=== PATIENT | male | born 2000 | race Caucasian/White ===

== ENCOUNTER 2022-12-28 09:43 | Observation (INO) | payer MEDICAID ==
[2022-12-28] MEDS ORDERED: Sodium Chloride 0.9% 1000 ML 1,000 ML IV STA (09:55)
[2022-12-28] MEDS ORDERED: Sodium Chloride 0.9% 1000 ML 1,000 ML ONE (10:06)
--- NOTE | 2022-12-28 10:09 | ERPHSYRPT ---
- History of Present Illness Time Seen by Provider: 12/28/22 10:07 Historian: patient Exam Limitations: no limitations Patient Subjective Stated Complaint: Abdominal pain Triage Nursing Assessment: Patient ambulated back to ED and transferred self to bed. Patient A+O X 3. Patient's skin pink, warm and dry. Patient complains of mid lower abdominal pain intermittent pain 2/10 that started yesterday morning. Patient complains of diarrhea, but denies N/V. Abdomen soft and round with BS X 4. Physician History: Patient complains of mid lower abdominal pain intermittent pain 2/10 that started yesterday morning. Patient complains of diarrhea, but denies Nausea and vomiting. Timing/Duration: yesterday Abdominal Pain Onset Location: RLQ, LLQ Pain Radiation: no radiation Severity of Pain-Max: mild Severity of Pain-Current: mild Modifying Factors: Improves With: nothing Associated Symptoms: diarrhea Previous symptoms: no prior history Body Map: 1 - pain Allergies/Adverse Reactions: No Known Drug Allergies Allergy (Unverified 12/28/22 09:54) Home Medications: No Reportable Medications [No Reported Medications] 12/28/22 [History] Hx Influenza Vaccination/Date Given: No Hx Pneumococcal Vaccination/Date Given: No Immunizations Up to Date: Yes Travel Risk - International Travel Have you traveled outside of the country in past 3 weeks: No - Coronavirus Screening Are you exhibiting any of the following symptoms?: No Close contact with a COVID-19 positive Pt in past 14-21 Days: No - Vaccine Status Have you recieved a Covid-19 vaccination: No - Review of Systems Constitutional: No Fever, No Chills Eyes: No Symptoms Ears, Nose, & Throat: No Symptoms Respiratory: No Cough, No Dyspnea Cardiac: No Chest Pain, No Edema, No Syncope Abdominal/Gastrointestinal: Abdominal Pain, Diarrhea, No Nausea, No Vomiting Genitourinary Symptoms: No Dysuria Musculoskeletal: No Back Pain, No Neck Pain Skin: No Rash Neurological: No Dizziness, No Focal Weakness, No Sensory Changes Psychological: No Symptoms Endocrine: No Symptoms All Other Systems: Reviewed and Negative - Past Medical History Pertinent Past Medical History: Yes Neurological History: No Pertinent History ENT History: No Pertinent History Cardiac History: No Pertinent History Respiratory History: No Pertinent History Endocrine Medical History: No Pertinent History Musculoskeletal History: No Pertinent History GI Medical History: No Pertinent History History: No Pertinent History Psycho-Social History: No Pertinent History Male Reproductive Disorders: No Pertinent History Other Medical History: Seasonal allergies - Past Surgical History Past Surgical History: No Neuro Surgical History: No Pertinent History Cardiac: No Pertinent History Respiratory: No Pertinent History Gastrointestinal: No Pertinent History Genitourinary: No Pertinent History Musculoskeletal: No Pertinent History Male Surgical History: No Pertinent History - Social History Smoking Status: Never smoker Exposure to second hand smoke: No Drug Use: none Patient Lives Alone: No - Nursing Vital Signs Nursing Vital Signs: Initial Vital Signs Temperature 99.5 F 12/28/22 09:54 Pulse Rate 94 H 12/28/22 09:54 Respiratory Rate 18 12/28/22 09:54 Blood Pressure 162/90 12/28/22 09:54 O2 Sat by Pulse Oximetry 99 12/28/22 09:54 Pain Scale Pain Intensity 2 - Physical Exam General Appearance: no apparent distress, alert Eye Exam: PERRL/EOMI, eyes nml inspection Ears, Nose, Throat Exam: normal ENT inspection, pharynx normal, moist mucous membranes Neck Exam: normal inspection, non-tender, supple, full range of motion Respiratory Exam: normal breath sounds, lungs clear, No respiratory distress Cardiovascular Exam: regular rate/rhythm, normal heart sounds Gastrointestinal/Abdomen Exam: soft, tenderness (RLQ, LLQ), No mass Back Exam: normal inspection, normal range of motion, No CVA tenderness, No vertebral tenderness Extremity Exam: normal inspection, normal range of motion, pelvis stable Neurologic Exam: alert, oriented x 3, cooperative, normal mood/affect, nml cerebellar function, sensation nml, No motor deficits Skin Exam: normal color, warm, dry SpO2: 99 - Course Nursing assessment & vital signs reviewed: Yes - CT Exams Abdomen/Pelvis CT Interpretation: Tele-radiologist Report (Acute appendicitis) Ordered Tests: Active Orders 24 hr Category Date Time Status ABDOMEN AND PELVIS W/0 CONTRAS [CT] Stat Exams 12/28/22 09:56 Completed AMYLASE Stat Lab 12/28/22 10:00 Received CBC W DIFF Stat Lab 12/28/22 10:00 Completed CMP Stat Lab 12/28/22 10:00 Received LIPASE Stat Lab 12/28/22 10:00 Received UA W/RFX UR CULTURE Stat Lab 12/28/22 10:00 Completed Urine Triage Profile Stat Lab 12/28/22 10:00 Completed Medication Summary Generic Name Dose Route Start Last Admin Trade Name Phylicia PRN Reason Stop Dose Admin Sodium Chloride 1,000 mls @ 999 mls/hr 12/28/22 09:55 12/28/22 10:07 Sodium Chloride 0.9% 1000 Ml IV 12/28/22 10:55 999 mls/hr .Q1H1M STA Administration Discontinued Medications Generic Name Dose Route Start Last Admin Trade Name Freq PRN Reason Stop Dose Admin Sodium Chloride Confirm 12/28/22 10:06 Sodium Chloride 0.9% 1000 Ml Administered 12/28/22 10:07 Dose 1,000 mls @ ud .ROUTE .STK-MED ONE Lab/Rad Data: Laboratory Result Diagrams 12/28/22 10:00 Laboratory Results 12/28/22 12/28/22 12/28/22 Range/Units 10:00 10:00 10:00 WBC 13.0 H (4.0-10.5) x10^3/uL RBC 5.34 (4.1-5.6) x10^6/uL Hgb 16.2 (12.5-18.0) g/dL Hct 47.9 (42-50) % MCV 89.7 (78-100) fL MCH 30.3 (26-32) pg MCHC 33.8 (32-36) g/dL RDW 12.9 (11.5-14.0) % Plt Count 318 (150-450) x10^3/uL MPV 10.1 (7.5-11.0) fL Gran % 80.2 H (36.0-66.0) % Immature Gran % (Auto) 0.3 (0.00-0.4) % Nucleat RBC Rel Count 0.0 (0.00-0.1) % Eos # (Auto) 0.07 (0-0.5) x10^3/uL Immature Gran # (Auto) 0.04 H (0.00-0.03) x10^3u/L Absolute Lymphs (auto) 1.30 (1.0-4.6) x10^3/uL Absolute Monos (auto) 1.13 (0.0-1.3) x10^3/uL Absolute Nucleated RBC 0.00 (0.00-0.01) x10^3u/L Lymphocytes % 10.0 L (24.0-44.0) % Monocytes % 8.7 (0.0-12.0) % Eosinophils % 0.5 (0.00-5.0) % Basophils % 0.3 (0.0-0.4) % Absolute Granulocytes 10.46 H (1.4-6.9) x10^3/uL Basophils # 0.04 (0-0.4) x10^3/uL Urine Color Yellow (Yellow) Urine Appearance Clear (Clear) Urine pH 7.0 (4.6-8.0) Ur Specific [place] 1.025 (1.005-1.030) Urine Protein Trace A (Negative) Urine Glucose (UA) Negative (Negative) mg/dL Urine Ketones Trace A (Negative) Urine Blood Negative (Negative) Urine Nitrite Negative (Negative) Urine Bilirubin Negative (Negative) Urine Urobilinogen 1.0 A (0.2) mg/dL Ur Leukocyte Esterase Negative (Negative) U Hyaline Cast (Auto) NONE SEEN (0-2) /LPF Urine Microscopic RBC 0-2 (0-5) /HPF Urine Microscopic WBC 0-2 (0-5) /HPF Ur Epithelial Cells None Seen (None Seen) /HPF Urine Bacteria None Seen (None Seen) /HPF Urine Culture Reflexed NO (NO) Urine Opiates Level NEGATIVE (NEGATIVE) Ur Methadone NEGATIVE (NEGATIVE) Urine Barbiturates NEGATIVE (NEGATIVE) Ur Phencyclidine (PCP) NEGATIVE (NEGATIVE) Urine Amphetamine NEGATIVE (NEGATIVE) U Benzodiazepine Level NEGATIVE (NEGATIVE) Urine Cocaine NEGATIVE (NEGATIVE) Urine Marijuana (THC) NEGATIVE (NEGATIVE) CT/ABDOMEN AND PELVIS W/0 CONTRAS CLINICAL HISTORY:right lower abdominal pain COMPARISON:None. TECHNIQUE:CT scan of the abdomen and pelvis was performed without intravenous contrast administration. Coronal and sagittal reconstructions were also obtained. FINDINGS: The appendix is dilated, thickened wall, measuring 7 cm in length and 1.5 cm in thickness. There is stranding of the surrounding fat and an appendicolith at its base measures 4 mm, findings representing acute appendicitis. Few mesenteric lymph nodes are noted. The liver is of average size, regular contour and homogeneous texture with no focal lesion could be detected on non-contrast basis. No intra hepatic biliary radical dilatation. The spleen is of average size and shape with homogeneous parenchyma and no focal lesion could be noted on non-contrast basis. Both kidneys are of normal size, shape and parenchymal thickness with no stones, back pressure changes or space occupying lesions on non-contrast basis. The other retroperitoneal structures including the pancreas and adrenal glands are grossly within normal limits. No significant lymph camron enlargement or ascetic fluid collection. The prostate is of average size and shape. Inadequate filling of the urinary bladder with no stones, masses, or diverticula. Bone window settings showed no evidence of fractures or destructive lesions. Lung window settings showed normal appearance of both basal lung segments. IMPRESSION: Findings are consistent with acute appendicitis. No definite imaging evidence of its rupture or collection in the current examination. The [facility] ER was called at [phone] at 09:41 AM ORAL AND MAXILLOFACIAL SURGEON, 12/28/2022 and Critical medical findings were verbally communicated to referring doctor Cesar Guzman. - Progress Progress: unchanged Counseled pt/family regarding: lab results, diagnosis, need for follow-up, rad results - Departure Departure Disposition: Observation Clinical Impression: Appendicitis Qualifiers: Appendicitis type: acute appendicitis Acute appendicitis type: with localized peritonitis Appendicitis gangrene presence: without gangrene Appendicitis perforation presence: without perforation Appendicitis abscess presence: without abscess Qualified Code(s): K35.30 - Acute appendicitis with localized peritonitis, without perforation or gangrene Condition: Fair Critical Care Time: Yes Critical Care Time(excluding separately billable procedures): Critical 30-74 mins Referrals: YAO YOUNG [Primary Care Provider] - Follow up/PCP as directed Instructions: Appendicitis in adults
[2022-12-28 10:22] LABS: Absolute Neutrophil Ct (ANC) 10.46 x10^3/uL (1.4-6.9); BASOPHIL % 0.3 % (0.0-0.4); Basophil (Absolute #) 0.04 x10^3/uL (0-0.4); Eosinophil % 0.5 % (0.00-5.0); Eosinophil (Absolute #) 0.07 x10^3/uL (0-0.5); Hematocrit 47.9 % (42-50); Hemoglobin 16.2 g/dL (12.5-18.0); IMMATURE GRAN # 0.04 x10^3u/L (0.00-0.03); IMMATURE GRAN % 0.3 % (0.00-0.4); Mean Cell Volume 89.7 fL (78-100); Mean Corpuscular Hemoglobin 30.3 pg (26-32); Mean Corpuscular Hgb Concent. 33.8 g/dL (32-36); Mean Platelet Volume 10.1 fL (7.5-11.0); Monocyte (Absolute #) 1.13 x10^3/uL (0.0-1.3); Monocytes % 8.7 % (0.0-12.0); Neutrophil % 80.2 % (36.0-66.0); Platelet Count 318 x10^3/uL (150-450); Red Blood Count 5.34 x10^6/uL (4.1-5.6); Red Cell Distribution Width 12.9 % (11.5-14.0)
[2022-12-28 10:25] LABS: Appearance Clear (Clear); Bacteria None Seen /HPF (None Seen); Bilirubin Negative (Negative); Blood Negative (Negative); Epithelial Cells None Seen /HPF (None Seen); Glucose, Urine Negative (Negative); Hyaline Casts NONE SEEN /LPF (0-2); Ketones Trace (Negative); Leukocyte Esterase Negative (Negative); Nitrite Negative (Negative); Protein,Urine Dip Trace (Negative); RBC 0-2 /HPF (0-5); Specific Gravity 1.025 (1.005-1.030); WBC 0-2 /HPF (0-5)
[2022-12-28 10:32] LABS: Amphetamine,Urine NEGATIVE (NEGATIVE); Barbiturate,Urine NEGATIVE (NEGATIVE); Benzodiazepine,Urine NEGATIVE (NEGATIVE); Cocaine,Urine NEGATIVE (NEGATIVE); Methadone,Urine NEGATIVE (NEGATIVE); Opiate,Urine NEGATIVE (NEGATIVE); PCP,Urine NEGATIVE (NEGATIVE); THC,Urine NEGATIVE (NEGATIVE)
[2022-12-28 10:38] LABS: ADD URINE CULTURE? NO (NO)
[2022-12-28 10:46] LABS: ALBUMIN 4.9 g/dL (3.5-5.0); ALKALINE PHOSPHATASE 91 U/L (38-126); AMYLASE 73 U/L (30-110); ANION GAP 18.2 MEQ/L (5-15); BLOOD UREA NITROGEN 14 mg/dL (9-20); CHLORIDE 105 mmol/L (98-107); Calcium 9.4 mg/dL (8.4-10.2); Carbon Dioxide 23 mmol/L (22-30); Creatinine 1 0.84 mg/dL (0.66-1.25); EST GLOMERULAR FILTRATION RATE > 60.0 ML/MIN; Glucose 103 mg/dL (74-106); LIPASE 54 U/L (23-300); Potassium 3.8 mmol/L (3.5-5.1); SGOT/AST 28 U/L (17-59); SGPT/ALT 25 U/L (0-50); SODIUM 142 mmol/L (137-145); Total Protein 8.3 g/dL (6.3-8.2)
--- NOTE | 2022-12-28 10:47 | XRAY ---
CLINICAL HISTORY:right lower abdominal pain COMPARISON:None. TECHNIQUE:CT scan of the abdomen and pelvis was performed without intravenous contrast administration. Coronal and sagittal reconstructions were also obtained. FINDINGS: The appendix is dilated, thickened wall, measuring 7 cm in length and 1.5 cm in thickness. There is stranding of the surrounding fat and an appendicolith at its base measures 4 mm, findings representing acute appendicitis. Few mesenteric lymph nodes are noted. The liver is of average size, regular contour and homogeneous texture with no focal lesion could be detected on non-contrast basis. No intra hepatic biliary radical dilatation. The spleen is of average size and shape with homogeneous parenchyma and no focal lesion could be noted on non-contrast basis. Both kidneys are of normal size, shape and parenchymal thickness with no stones, back pressure changes or space occupying lesions on non-contrast basis. The other retroperitoneal structures including the pancreas and adrenal glands are grossly within normal limits. No significant lymph camron enlargement or ascetic fluid collection. The prostate is of average size and shape. Inadequate filling of the urinary bladder with no stones, masses, or diverticula. Bone window settings showed no evidence of fractures or destructive lesions. Lung window settings showed normal appearance of both basal lung segments. IMPRESSION: Findings are consistent with acute appendicitis. No definite imaging evidence of its rupture or collection in the current examination. The [facility] ER was called at [phone] at 09:41 AM SET UP AND CHARGER, 12/28/2022 and Critical medical findings were verbally communicated to referring doctor Cesar Guzman. Electronically Signed by: Jesse Eden MD. (12/28/2022 09:46:22 SET UP AND CHARGER)
[2022-12-28] MEDS ORDERED: CEFAZOLIN 2 GM-D5W BAG** 2 GM/50 ML ML IV STA (10:51)
[2022-12-28] MEDS ORDERED: Sensorcaine 0.25% 10 ML ONE (11:45)
[2022-12-28] MEDS ORDERED: Lactated Ringers 1,000 ML IV ONE (11:45)
[2022-12-28] MEDS ORDERED: SUBLIMAZE 100 MCG/2 ML ONE (12:24)
[2022-12-28] MEDS ORDERED: Zofran 4 MG/2 ML VIAL ONE (12:24)
[2022-12-28] MEDS ORDERED: Versed 2 MG/2 ML Injection ONE (12:24)
[2022-12-28] MEDS ORDERED: Zemuron 100 MG/10 ML ONE (12:24)
[2022-12-28] MEDS ORDERED: TORAdol 30 mg Injection ONE (12:24)
[2022-12-28] MEDS ORDERED: DIPRIVAN 200 MG/20 ML IV ONE (12:24)
[2022-12-28] MEDS ORDERED: BRIDION 200MG/2ML IV ONE (12:24)
[2022-12-28] MEDS ORDERED: Decadron 4 MG INJ ONE (12:24)
[2022-12-28] MEDS ORDERED: Xylocaine-Mpf 2% 5 Ml Vial ONE (12:24)
[2022-12-28] MEDS ORDERED: MEFOXIN 2 GM PREMIX** 2 GM/50 ML ML IV ONE (12:48)
[2022-12-28] MEDS ORDERED: Lactated Ringers 1,000 ML IV SCH (14:30)
[2022-12-28] MEDS ORDERED: Zofran 4 MG/2 ML VIAL IV PRN (14:32)
[2022-12-28] MEDS ORDERED: MORPHINE SULFATE 4 MG INJ IV PRN (14:32)
[2022-12-28] MEDS: NORCO 5/325 MG PO PRN ×2 (15:09→23:46)
[2022-12-28] MEDS: PIPERACILLIN/TAZOBACTAM 3.375 GM in Sodium Chloride 100ML MINI-BAG PLUS 100 ML IV SCH ×2 (17:49→23:46)
[2022-12-29 05:19] LABS: BASOPHIL % 0.3 % (0.0-0.4); Basophil (Absolute #) 0.03 x10^3/uL (0-0.4); Eosinophil % 0.1 % (0.00-5.0); Eosinophil (Absolute #) 0.01 x10^3/uL (0-0.5); Hematocrit 42.6 % (42-50); Hemoglobin 14.2 g/dL (12.5-18.0); IMMATURE GRAN # 0.03 x10^3u/L (0.00-0.03); IMMATURE GRAN % 0.3 % (0.00-0.4); Lymphocyte (Absolute #) 1.75 x10^3/uL (1.0-4.6); Lymphocytes % 15.5 % (24.0-44.0); Mean Cell Volume 90.6 fL (78-100); Mean Corpuscular Hemoglobin 30.2 pg (26-32); Mean Corpuscular Hgb Concent. 33.3 g/dL (32-36); Mean Platelet Volume 9.7 fL (7.5-11.0); Monocytes % 9.7 % (0.0-12.0); Neutrophil % 74.1 % (36.0-66.0); Platelet Count 279 x10^3/uL (150-450); Red Cell Distribution Width 13.2 % (11.5-14.0); White Blood Count 11.3 x10^3/uL (4.0-10.5)
[2022-12-29] MEDS: PIPERACILLIN/TAZOBACTAM 3.375 GM in Sodium Chloride 100ML MINI-BAG PLUS 100 ML IV SCH (05:53)
[2022-12-29] MEDS: NORCO 5/325 MG PO PRN ×2 (05:53→10:35)
[2022-12-29 08:46] VITALS: BP 122/60; PULSE 60; RESP 18; TEMP 97.3; O2SAT 95
--- NOTE | 2022-12-30 09:58 | CONS ---
CONSULT DATE: 12/28/2022 HISTORY OF PRESENT ILLNESS: 22 year-old gentleman who has had abdominal pain in lower abdomen since yesterday. Failed to improve. Denied any bloody stools or diarrhea. Came in. Had some leukocytosis. Had CT scan that showed a dilated appendix, stranding appendicolith, subacute appendicitis. PAST MEDICAL HISTORY: He has some allergies. Otherwise, denied any chronic illnesses. HOME MEDICATIONS: Take montelukast and loratadine on occasion. ALLERGIES: NKDA. FAMILY HISTORY: Colon cancer. Also, some hypertension in the family. I think he mentioned heart disease. SOCIAL HISTORY: No alcohol abuse. PAST SURGICAL HISTORY: Denied any prior abdominal surgeries. REVIEW OF SYSTEMS: 14 systems reviewed per admission assessment pertinent for the abdominal pain and history of allergies. No chest pain or palpitations. Other systems negative or noncontributory other than above and per admission assessment. PHYSICAL EXAMINATION: GENERAL: No acute distress. HEENT: Sclerae nonicteric. NECK: No JVD. CHEST: Equal excursion. Nonlabored breathing. CVS: Regular rate and rhythm. ABDOMEN: Soft. No peritoneal signs, but he does have some lower abdominal tenderness currently. EXTREMITIES: No cyanosis or edema. NEURO: Alert, moving extremities symmetrically. PSYCH: Appropriate mood and affect. IMPRESSION: 1. ACUTE LOWER ABDOMINAL PAIN. Has had some leukocytosis. He has had abnormal CT scan and history and physical exam suggestive of acute appendicitis. Feel the patient would benefit from diagnostic laparoscopy, laparoscopic appendectomy, possible open when OR time available. General risks of bleeding; infection; risk or trocar injury or hernia; risk of bowel, bladder, or blood vessel injury; risk of subsequent intraabdominal abscess or fistula formation possibly requiring percutaneous or open drainage even at a later date; general risks of anesthesia, deep vein thrombosis, pulmonary embolus, or pneumonia; perioperative risks of aches, pains, or bloating; risk of finding normal appendix likely would remove it incidentally and look for other etiology that might need taken care of surgically; general risks of anesthesia or sedation; perioperative risks of ileus or obstruction and ongoing infection. He understands and agrees to planned procedure. Will proceed with diagnostic laparoscopy, laparoscopic appendectomy, possible open when OR time available. Otherwise, will continue his PRN medication for his allergies. Thank you for the consult.
--- NOTE | 2022-12-30 10:25 | OP ---
SURGERY DATE: 12/28/2022 SURGERY TIME: 9 PREOPERATIVE DIAGNOSIS: 1. ACUTE ABDOMINAL PAIN. 2. ACUTE APPENDICITIS. POSTOPERATIVE DIAGNOSIS: 1. ACUTE NONPERFORATED APPENDICITIS. PROCEDURE: 1. LAPAROSCOPIC APPENDECTOMY. SURGEON: Dr. Bebo Pryor. ANESTHESIA: General. ESTIMATED BLOOD LOSS: Minimal. INDICATIONS: As noted above. Risks and benefits explained in detail, but not limited to. Consent obtained. DESCRIPTION OF PROCEDURE AND FINDINGS: The patient was taken to the OR. General anesthesia was induced. The abdomen prepped and draped in the usual sterile fashion. After official time-out, no disagreement in planned procedure. Transverse incision made in the supraumbilical area. Fascia grasped and pulled up. Veress needle inserted. Tested with saline. Pneumoperitoneum accomplished insufflating to an open pressure of 0-15. 5 mm bladeless port and camera inserted without difficulty followed by a 12 mm right upper quadrant port and 5 mm lower mid abdomen port. There was no evidence of any intraabdominal injury secondary to trocar insertion. Appendix was quite dilated consistent with acute appendicitis. Adhesions were release allowing the appendix to be mobilized upward. The Endo[employer] stapler was fired across the base of the appendix at the cecum. Sequential reloads were fired across the mesoappendix. Appendix was placed in a bag, pulled free, and passed off. The port was replaced. A copious amount of irrigation accomplished in the right lower quadrant, pelvis, and right gutter irrigating until clear. The fascial defect 12 size was closed under direct vision with #1 Vicryl. The pneumoperitoneum decompressed. Wounds irrigated out. Skin incisions closed with 4-0 Vicryl. 0.25% Marcaine local had been injected along each skin incision and fascial defect at the beginning of the procedure. There were no immediate complications. There was no family to discuss any findings with here at this time. Have him on IV antibiotics today and possibly home tomorrow. His WBC count is okay. He was given a script for Augmentin and Hydrocodone.
== END 2022-12-29 10:55 | disposition home or self-care (01) ==
LOC: ED 09:43 → MED SURG 13:50 → UNDOADMOB 13:50 → UNDODISOB 12-29 10:55
PROVIDERS: ADMIT Surgery; ATTEND Surgery
DX: K35.80 Unspecified acute appendicitis (principal); D72.829 Elevated white blood cell count, unspecified; Z20.828 Contact with and (suspected) exposure to other viral communicable diseases; Z80.0 Family history of malignant neoplasm of digestive organs
CPT/HCPCS: 36000; 36415; 74176; 80053; 80307; 81001; 82150; 83690; 85025; 96365; 99140; 99284; 99291; J0690; J0694; J1100; J1885; J2250; J2405; J2704; J3010; A9270-GY

== ENCOUNTER 2024-05-30 08:10 | Emergency (ER) | payer BC, MEDICAID ==
[2024-05-30 08:26] VITALS: TEMP 96.9
[2024-05-30 09:03] VITALS: O2SAT 98
[2024-05-30 09:20] LABS: Absolute Neutrophil Ct (ANC) 5.64 x10^3/uL (1.78-5.38); BASOPHIL % 0.5 % (0.2-1.2); Basophil (Absolute #) 0.04 x10^3/uL (0.01-0.08); Eosinophil % 0.9 % (0.8-7.0); Eosinophil (Absolute #) 0.07 x10^3/uL (0.04-0.54); Hematocrit 47.4 % (40.1-51.0); Hemoglobin 15.9 g/dL (13.7-17.5); IMMATURE GRAN # 0.02 x10^3u/L (0.001-0.031); IMMATURE GRAN % 0.3 % (0.001-0.429); Lymphocyte (Absolute #) 1.11 x10^3/uL (1.32-3.57); Mean Cell Volume 88.6 fL (79.0-92.2); Mean Corpuscular Hemoglobin 29.7 pg (25.7-32.2); Mean Corpuscular Hgb Concent. 33.5 g/dL (32.3-36.5); Mean Platelet Volume 9.9 fL (9.4-12.4); Monocyte (Absolute #) 0.51 x10^3/uL (0.30-0.82); Monocytes % 6.9 % (5.3-12.2); Neutrophil % 76.4 % (34.0-67.9); Platelet Count 245 x10^3/uL (163-337); Red Blood Count 5.35 x10^6/uL (4.63-6.08); Red Cell Distribution Width 12.3 % (11.6-14.4); White Blood Count 7.4 x10^3/uL (4.23-9.07)
--- NOTE | 2024-05-30 09:24 | XRAY ---
CLINICAL HISTORY: Right flank pain COMPARISON: 12/28/2022 CT. TECHNIQUE: CT of the abdomen and pelvis was performed, with the following protocol: axial images, and reconstructed coronal and sagittal images. No intravenous contrast was administered. One of the following dose reduction techniques was utilized for this exam: Automated exposure control, adjustment of the mA and/or kV according to patient size, and use of iterative reconstruction. CTDI: 997mGy, DLP: 538mGy*cm. FINDINGS: Abdomen: Bilateral basal faint small patchy ground glass opacities Liver: Normal in size, shape, and density. No focal lesions, cysts, or masses were identified. Gallbladder and Biliary System: The gallbladder is normal in size and shape. No wall thickening, pericholecystic fluid, or gallstones were identified. Pancreas: Pancreatic head, body, and tail are visualized and appear normal in size and density. No pancreatic masses or calcifications were noted. Spleen: Normal in size, shape, and density. No splenic lesions or masses were identified. Kidneys and Adrenal Glands: Both kidneys are normal in size, shape, and position. Cortical thickness is within normal limits. No renal calculi or hydronephrosis. Adrenal glands are unremarkable. Appendix: Minimal right iliac fossa fat stranding, with metallic surgical clips, likely previous appendicectomy. Pelvis: Urinary Bladder: Normal in contour and wall thickness. No intraluminal lesions. Prostate: Normal in size and contour. No masses or abnormal thickening. Peritoneal and Retroperitoneal Structures: No free fluid or abnormal fluid collections were identified within the abdomen or pelvis. No lymphadenopathy was noted. Bowel: The visualized bowel loops are normal in caliber and appearance. No evidence of bowel obstruction or wall thickening. Bones and Soft Tissues: Pelvic bones and soft tissues are unremarkable. No fractures or abnormal masses were identified. IMPRESSION: 1. Overall, non-contrast CT abdomen and pelvis demonstrate normal findings without evidence of acute intra-abdominal pathology. .Bilateral basal faint small patchy ground glass opacities. 2. Clinical correlation is recommended. Electronically Signed by: Jesse Eden MD. (05/30/2024 09:20:20 EDT)
[2024-05-30 09:29] LABS: Appearance Clear (Clear); Bacteria None Seen /HPF (None Seen); Bilirubin Negative (Negative); Blood Moderate (Negative); Epithelial Cells None Seen /HPF (None Seen); Glucose, Urine Negative (Negative); Hyaline Casts NONE SEEN /LPF (0-2); Ketones Negative (Negative); Leukocyte Esterase Negative (Negative); Nitrite Negative (Negative); Ph 6.5 (4.6-8.0); Protein,Urine Dip Trace (Negative); RBC 51-100 /HPF (0-5); Specific Gravity 1.025 (1.005-1.030)
[2024-05-30 09:33] LABS: ANION GAP 18.6 MEQ/L (5-15); Calcium 9.4 mg/dL (8.4-10.2); Creatinine 1 0.97 mg/dL (0.66-1.25); EST GLOMERULAR FILTRATION RATE 113.2 ML/MIN
--- NOTE | 2024-05-30 10:05 | ERPHSYRPT ---
- History of Present Illness Source: patient Exam Limitations: no limitations Patient Subjective Stated Complaint: Patient reports waking up this am with sudden onset of right lower back pain with nausea, no vomiting. Reports being diaphoretic and the pain rolling around to the right side of his abdomen. Nausea and diaphoresis has subsided and the pain has decreased but has not gone away. Triage Nursing Assessment: Patient ambulated back to ER without difficulties. He is alert and oriented. MELO WNL. NO SOB. Skin tone normal. Physician History: Patient had classic symptoms of a kidney stone. He had right flank pain that radiated to his inguinal area. It was intermittent and crampy and colicky. He had some nausea little bit of sweating but that went away. He has been pretty much pain-free since the pain only lasted for a few episodes. It seems to have resolved. He does not have any abdominal pain right now. He has had no dysuria and no fever chills or any other urinary symptoms. He has not had any abdominal surgeries and is a healthy bobby without medical problems. Allergies/Adverse Reactions: No Known Drug Allergies Allergy (Verified 05/30/24 08:20) Home Medications: No Reportable Medications [No Reported Medications] 05/30/24 [History] Hx Influenza Vaccination/Date Given: No Hx Pneumococcal Vaccination/Date Given: No Immunizations Up to Date: Yes Travel Risk - International Travel Have you traveled outside of the country in past 3 weeks: No - Emerging Infectious Disease Are you exhibiting symptoms associated with any current EIDs: Yes Symptoms: Abdominal Pain - Past Medical History Pertinent Past Medical History: Yes Neurological History: No Pertinent History ENT History: No Pertinent History Cardiac History: No Pertinent History Respiratory History: No Pertinent History Endocrine Medical History: No Pertinent History Musculoskeletal History: No Pertinent History GI Medical History: No Pertinent History History: No Pertinent History Psycho-Social History: No Pertinent History Male Reproductive Disorders: No Pertinent History Other Medical History: Seasonal allergies - Past Surgical History Past Surgical History: Yes Neuro Surgical History: No Pertinent History Cardiac: No Pertinent History Respiratory: No Pertinent History Gastrointestinal: Appendectomy Genitourinary: No Pertinent History Musculoskeletal: No Pertinent History Male Surgical History: No Pertinent History - Social History Smoking Status: Never smoker Exposure to second hand smoke: No Drug Use: none - Social Determinants of Health Will the patient participate in the screening: Yes Do you worry about a steady place to live?: No Do you have any problems with any of the following?: No known problems In the past 12 months,have you had to go without utilities?: No Transportation Issues: No Has anyone in your support network made you feel unsafe?: No Have you or anyone in your house had to go w/o enough food: No - Review of Systems Constitutional: No Symptoms Eyes: No Symptoms Abdominal/Gastrointestinal: No Symptoms Musculoskeletal: No Symptoms All Other Systems: Reviewed and Negative - Nursing Vital Signs Nursing Vital Signs: Initial Vital Signs Temperature 96.9 F 05/30/24 08:15 Pulse Rate 86 05/30/24 08:15 Respiratory Rate 17 05/30/24 08:15 Blood Pressure 140/77 05/30/24 08:15 O2 Sat by Pulse Oximetry 100 05/30/24 08:15 Pain Scale Pain Intensity 5 - Physical Exam General Appearance: no apparent distress Respiratory Exam: normal breath sounds, lungs clear, No chest tenderness Cardiovascular Exam: regular rate/rhythm Gastrointestinal/Abdomen Exam: soft, normal bowel sounds, No tenderness, No distention Back Exam: normal inspection, normal range of motion Skin Exam: normal color SpO2: 98 Ordered Tests: Active Orders 24 hr Category Date Time Status ABDOMEN AND PELVIS W/0 CONTRAS [CT] Stat Exams 05/30/24 08:15 Completed BMP Stat Lab 05/30/24 09:18 Completed CBC W DIFF Stat Lab 05/30/24 09:18 Completed CULTURE,URINE Stat Lab 05/30/24 09:18 Received UA W/RFX UR CULTURE Stat Lab 05/30/24 09:18 Completed Lab/Rad Data: Laboratory Result Diagrams 05/30/24 09:18 05/30/24 09:18 Laboratory Results 05/30/24 05/30/24 05/30/24 Range/Units 09:18 09:18 09:18 WBC 7.4 (4.23-9.07) x10^3/uL RBC 5.35 (4.63-6.08) x10^6/uL Hgb 15.9 (13.7-17.5) g/dL Hct 47.4 (40.1-51.0) % MCV 88.6 (79.0-92.2) fL MCH 29.7 (25.7-32.2) pg MCHC 33.5 (32.3-36.5) g/dL RDW 12.3 (11.6-14.4) % Plt Count 245 (163-337) x10^3/uL MPV 9.9 (9.4-12.4) fL Gran % 76.4 H (34.0-67.9) % Immature Gran % (Auto) 0.3 (0.001-0.429) % Nucleat RBC Rel Count 0.0 (0.00-0.2) % Eos # (Auto) 0.07 (0.04-0.54) x10^3/uL Immature Gran # (Auto) 0.02 (0.001-0.031) x10^3u/L Absolute Lymphs (auto) 1.11 L (1.32-3.57) x10^3/uL Absolute Monos (auto) 0.51 (0.30-0.82) x10^3/uL Absolute Nucleated RBC 0.00 (0.00-0.012) x10^3u/L Lymphocytes % 15.0 L (21.8-53.1) % Monocytes % 6.9 (5.3-12.2) % Eosinophils % 0.9 (0.8-7.0) % Basophils % 0.5 (0.2-1.2) % Absolute Granulocytes 5.64 H (1.78-5.38) x10^3/uL Basophils # 0.04 (0.01-0.08) x10^3/uL Sodium 145 (135-145) mmol/L Potassium 4.0 (3.5-5.1) mmol/L Chloride 106 (98-107) mmol/L Carbon Dioxide 24 (22-30) mmol/L Anion Gap 18.6 H (5-15) MEQ/L BUN 17 (9-20) mg/dL Creatinine 0.97 (0.66-1.25) mg/dL Estimated GFR 113.2 ML/MIN Glucose 101 (74-106) mg/dL Calcium 9.4 (8.4-10.2) mg/dL Urine Color Yellow (Yellow) Urine Appearance Clear (Clear) Urine pH 6.5 (4.6-8.0) Ur Specific [place] 1.025 (1.005-1.030) Urine Protein Trace A (Negative) Urine Glucose (UA) Negative (Negative) mg/dL Urine Ketones Negative (Negative) Urine Blood Moderate A (Negative) Urine Nitrite Negative (Negative) Urine Bilirubin Negative (Negative) Urine Urobilinogen 1.0 A (0.2) mg/dL Ur Leukocyte Esterase Negative (Negative) U Hyaline Cast (Auto) NONE SEEN (0-2) /LPF Urine Microscopic RBC 51-100 A (0-5) /HPF Urine Microscopic WBC 6-10 A (0-5) /HPF Ur Epithelial Cells None Seen (None Seen) /HPF Urine Bacteria None Seen (None Seen) /HPF Urine Culture Reflexed YES (NO) - Progress Progress: unchanged Progress Note: Patient was stable throughout stay. He had classic UTI symptoms. I went and got a CT that did not show any stone. I think that he either had a really small stone or had 1 in the past. His urine had red cells but no white cells I do not think that there is an infectious process going on. 05/30/24 10:06 - Departure Departure Disposition: Home Clinical Impression: Kidney stone Condition: Stable Critical Care Time: No Referrals: YAO YOUNG [Primary Care Provider] - Follow up/PCP as directed Instructions: Kidney Stones (DC)
[2024-05-30 10:14] VITALS: BP 117/80; PULSE 80; RESP 16
== END 2024-05-30 10:15 | disposition home or self-care (01) ==
LOC: ED 08:10
DX: N20.0 Calculus of kidney (principal); R10.9 Unspecified abdominal pain; R11.0 Nausea
CPT/HCPCS: 36415; 74176; 80048; 81001; 85025; 87086; 99284

== ENCOUNTER 2024-06-06 00:54 | Emergency (ER) | payer BC ==
[2024-06-06 01:06] VITALS: TEMP 98.1
--- NOTE | 2024-06-06 01:10 | ERPHSYRPT ---
- History of Present Illness Time Seen by Provider: 06/06/24 00:58 Source: patient, family Exam Limitations: no limitations Physician History: Pt had onset of right flank pain radiating around to his groin again today. He was seen here last weekend and thought to have renal stone due to hematuria - CT reported by him as clear at that time and thought to have passed a stone. He was fine all week long until just a couple of hours ago this came back. Discussed with pt and available family risks and benefits of testing/Tx including CBC, CMP, UA, pain med ( toradol) , and they wish to proceed so these are ordered. We discussed CT , but he has recently had this and abd exam is benign nontender nondistended without peritoneal signs or masses - and so he reasonably declines at this time. . Results discussed with pt and available family. initial pain level 5/10 interval pain level - Timing/Duration: today Method of Injury: other (no known injury) Quality: burning, sharp, throbbing Back Pain Location: lumbar spine Severity of Pain-Max: moderate Severity of Pain-Current: moderate Modifying Factors: Improves With: nothing Associated Symptoms: denies symptoms Previous symptoms: same symptoms as today, recently seen, recently treated Allergies/Adverse Reactions: No Known Drug Allergies Allergy (Verified 06/06/24 01:15) Hx Influenza Vaccination/Date Given: No Hx Pneumococcal Vaccination/Date Given: No Travel Risk - Emerging Infectious Disease Are you exhibiting symptoms associated with any current EIDs: Yes Symptoms: Abdominal Pain - Review of Systems Constitutional: No Fever, No Chills Eyes: No Symptoms Ears, Nose, & Throat: No Symptoms Respiratory: No Cough, No Dyspnea Cardiac: No Chest Pain, No Edema, No Syncope Abdominal/Gastrointestinal: No Abdominal Pain, No Nausea, No Vomiting, No Diarrhea Genitourinary Symptoms: Flank Pain, No Dysuria Musculoskeletal: Back Pain, No Neck Pain Skin: No Rash Neurological: No Dizziness, No Focal Weakness, No Sensory Changes Psychological: No Symptoms Endocrine: No Symptoms Hematologic/Lymphatic: No Symptoms Immunological/Allergic: No Symptoms All Other Systems: Reviewed and Negative - Past Medical History Pertinent Past Medical History: Yes Neurological History: No Pertinent History ENT History: No Pertinent History Cardiac History: No Pertinent History Respiratory History: No Pertinent History Endocrine Medical History: No Pertinent History Musculoskeletal History: No Pertinent History GI Medical History: No Pertinent History History: No Pertinent History Psycho-Social History: No Pertinent History Male Reproductive Disorders: No Pertinent History Other Medical History: Seasonal allergies - Past Surgical History Past Surgical History: Yes Neuro Surgical History: No Pertinent History Cardiac: No Pertinent History Respiratory: No Pertinent History Gastrointestinal: Appendectomy Genitourinary: No Pertinent History Musculoskeletal: No Pertinent History Male Surgical History: No Pertinent History - Social History Smoking Status: Never smoker Exposure to second hand smoke: No Drug Use: none - Social Determinants of Health Will the patient participate in the screening: Yes Do you worry about a steady place to live?: No In the past 12 months,have you had to go without utilities?: No Transportation Issues: No Has anyone in your support network made you feel unsafe?: No Have you or anyone in your house had to go w/o enough food: No - Nursing Vital Signs Nursing Vital Signs: Initial Vital Signs Pulse Rate 62 06/06/24 01:03 Respiratory Rate 14 06/06/24 01:03 Blood Pressure 135/86 06/06/24 01:03 O2 Sat by Pulse Oximetry 99 06/06/24 01:03 Pain Scale Pain Intensity [Right Lower 5 Back] Pain Intensity 4 - Physical Exam General Appearance: no apparent distress, alert Eye Exam: PERRL/EOMI, eyes nml inspection Neck Exam: normal inspection, non-tender, supple, full range of motion, No menin gismus, No midline tenderness Respiratory Exam: normal breath sounds, lungs clear, No respiratory distress Cardiovascular Exam: regular rate/rhythm, normal heart sounds Gastrointestinal Exam: soft, No tenderness, No mass Rectal Exam: deferred Extremity Exam: normal inspection, normal range of motion, No calf tenderness, No pedal edema Peripheral Pulses: carotid (R): 2+, carotid (L): 2+, femoral (R): 2+, femoral (L): 2+, dorsalis-pedis (R): 2+, dorsalis-pedis (L): 2+ Neurologic Exam: alert, oriented x 3, cooperative, lead technical architect II-XII nml as tested, normal mood/affect, nml station & gait, sensation nml, No motor deficits Skin Exam: normal color, warm, dry, No rash SpO2 Interpretation: normal SpO2: 100 O2 Delivery: Room Air - Course Nursing assessment & vital signs reviewed: Yes Ordered Tests: Active Orders 24 hr Category Date Time Status IV Insertion STAT Care 06/06/24 01:10 Active CBC W DIFF Stat Lab 06/06/24 01:10 Completed CMP Stat Lab 06/06/24 01:10 Completed UA W/RFX UR CULTURE Stat Lab 06/06/24 01:20 Completed Medication Summary Discontinued Medications Generic Name Dose Route Start Last Admin Trade Name Phylicia PRN Reason Stop Dose Admin Sodium Chloride 1,000 mls @ 999 mls/hr 06/06/24 01:10 06/06/24 01:27 Sodium Chloride 0.9% 1000 Ml IV 06/06/24 02:10 999 mls/hr .Q1H1M STA Administration Sodium Chloride Confirm 06/06/24 01:22 Sodium Chloride 0.9% 1000 Ml Administered 06/06/24 01:23 Dose 1,000 mls @ ud .ROUTE .STK-MED ONE Ketorolac Tromethamine 30 mg 06/06/24 01:10 06/06/24 01:26 Ketorolac Tromethamine 30 Mg/Ml Inj IV 06/06/24 01:11 30 mg STAT ONE Administration Ketorolac Tromethamine Confirm 06/06/24 01:22 Ketorolac Tromethamine 30 Mg/Ml Inj Administered 06/06/24 01:23 Dose 30 mg .ROUTE .STK-MED ONE Lab/Rad Data: Laboratory Result Diagrams 06/06/24 01:10 06/06/24 01:10 Laboratory Results 06/06/24 06/06/24 06/06/24 Range/Units 01:20 01:10 01:10 WBC 6.1 (4.23-9.07) x10^3/uL RBC 5.05 (4.63-6.08) x10^6/uL Hgb 15.1 (13.7-17.5) g/dL Hct 44.1 (40.1-51.0) % MCV 87.3 (79.0-92.2) fL MCH 29.9 (25.7-32.2) pg MCHC 34.2 (32.3-36.5) g/dL RDW 12.2 (11.6-14.4) % Plt Count 256 (163-337) x10^3/uL MPV 9.9 (9.4-12.4) fL Gran % 48.6 (34.0-67.9) % Immature Gran % (Auto) 0.3 (0.001-0.429) % Nucleat RBC Rel Count 0.0 (0.00-0.2) % Eos # (Auto) 0.14 (0.04-0.54) x10^3/uL Immature Gran # (Auto) 0.02 (0.001-0.031) x10^3u/L Absolute Lymphs (auto) 2.24 (1.32-3.57) x10^3/uL Absolute Monos (auto) 0.70 (0.30-0.82) x10^3/uL Absolute Nucleated RBC 0.00 (0.00-0.012) x10^3u/L Lymphocytes % 36.8 (21.8-53.1) % Monocytes % 11.5 (5.3-12.2) % Eosinophils % 2.3 (0.8-7.0) % Basophils % 0.5 (0.2-1.2) % Absolute Granulocytes 2.96 (1.78-5.38) x10^3/uL Basophils # 0.03 (0.01-0.08) x10^3/uL Sodium 141 (135-145) mmol/L Potassium 3.9 (3.5-5.1) mmol/L Chloride 102 (98-107) mmol/L Carbon Dioxide 25 (22-30) mmol/L Anion Gap 17.1 H (5-15) MEQ/L BUN 19 (9-20) mg/dL Creatinine 0.95 (0.66-1.25) mg/dL Estimated GFR 116.1 ML/MIN Glucose 100 (74-106) mg/dL Calcium 9.3 (8.4-10.2) mg/dL Total Bilirubin 0.50 (0.2-1.3) mg/dL AST 35 (17-59) U/L ALT 26 (0-50) U/L Alkaline Phosphatase 62 (38-126) U/L Serum Total Protein 7.7 (6.3-8.2) g/dL Albumin 4.7 (3.5-5.0) g/dL Urine Color Yellow (Yellow) Urine Appearance Clear (Clear) Urine pH 5.5 (4.6-8.0) Ur Specific [place] 1.025 (1.005-1.030) Urine Protein Negative (Negative) Urine Glucose (UA) Negative (Negative) mg/dL Urine Ketones Negative (Negative) Urine Blood Moderate A (Negative) Urine Nitrite Negative (Negative) Urine Bilirubin Negative (Negative) Urine Urobilinogen 0.2 (0.2) mg/dL Ur Leukocyte Esterase Negative (Negative) U Hyaline Cast (Auto) NONE SEEN (0-2) /LPF Urine Microscopic RBC 21-50 A (0-5) /HPF Urine Microscopic WBC 0-2 (0-5) /HPF Ur Epithelial Cells None Seen (None Seen) /HPF Urine Bacteria None Seen (None Seen) /HPF Urine Culture Reflexed NO (NO) - Progress Progress: improved, re-examined Counseled pt/family regarding: lab results, diagnosis, need for follow-up Medical Desision Making - Independent Historian Additional History obtained from: Family - Discussion of managment Reviewed:: Test results, Need for additional workup Agreed on:: Treatment plan, need for follow-up - Diagnostic Testing Diagnostic test were ordered, analyzed, and reviewed by me: Yes - Risk of complications The pt has a mod risk of morbidity or mortality based on: Need for prescription drug management - Departure Departure Disposition: Home Clinical Impression: Hematuria, symptoms consistent with kidney stone, back/flank/groin pain of unconfirmed kale Condition: Good Critical Care Time: No Referrals: YAO YOUNG [Primary Care Provider] - Follow up/PCP as directed Instructions: Low Back Pain (DC), Kidney stones in adults - ED discharge instructions, Kidney stone diet Additional Instructions: We are providing some instructions for kidney stone although we have not yet confirmed the cause for your symptoms and not found a stone even though this seems a likely explanation of your symptoms. Since there could be another condition not yet detected as a source, followup is very important to confirm the cause, and return if not improving or any symptoms of concern such as abdominal pain, vomiting, fever, or others occur. Prescriptions: Hydrocodone/Acetaminophen [Hydrocodone-Acetamin 5-325 mg] 1 tab PO Q6HPRN PRN #14 tablet MDD 4 PRN Reason: Pain
[2024-06-06] MEDS ORDERED: TORAdol 30 mg Injection ONE (01:22)
[2024-06-06] MEDS ORDERED: Sodium Chloride 0.9% 1000 ML 1,000 ML ONE (01:22)
[2024-06-06 01:24] LABS: Absolute Neutrophil Ct (ANC) 2.96 x10^3/uL (1.78-5.38); BASOPHIL % 0.5 % (0.2-1.2); Basophil (Absolute #) 0.03 x10^3/uL (0.01-0.08); Eosinophil % 2.3 % (0.8-7.0); Eosinophil (Absolute #) 0.14 x10^3/uL (0.04-0.54); Hematocrit 44.1 % (40.1-51.0); Hemoglobin 15.1 g/dL (13.7-17.5); IMMATURE GRAN # 0.02 x10^3u/L (0.001-0.031); IMMATURE GRAN % 0.3 % (0.001-0.429); Lymphocyte (Absolute #) 2.24 x10^3/uL (1.32-3.57); Lymphocytes % 36.8 % (21.8-53.1); Mean Cell Volume 87.3 fL (79.0-92.2); Mean Corpuscular Hemoglobin 29.9 pg (25.7-32.2); Mean Corpuscular Hgb Concent. 34.2 g/dL (32.3-36.5); Mean Platelet Volume 9.9 fL (9.4-12.4); Monocytes % 11.5 % (5.3-12.2); Neutrophil % 48.6 % (34.0-67.9); Platelet Count 256 x10^3/uL (163-337); Red Blood Count 5.05 x10^6/uL (4.63-6.08); Red Cell Distribution Width 12.2 % (11.6-14.4); White Blood Count 6.1 x10^3/uL (4.23-9.07)
[2024-06-06] MEDS: TORAdol 30 mg Injection IV ONE (01:26)
[2024-06-06] MEDS: Sodium Chloride 0.9% 1000 ML 1,000 ML IV STA (01:27)
[2024-06-06 01:30] LABS: Appearance Clear (Clear); Bacteria None Seen /HPF (None Seen); Bilirubin Negative (Negative); Blood Moderate (Negative); Epithelial Cells None Seen /HPF (None Seen); Glucose, Urine Negative (Negative); Hyaline Casts NONE SEEN /LPF (0-2); Ketones Negative (Negative); Leukocyte Esterase Negative (Negative); Nitrite Negative (Negative); Ph 5.5 (4.6-8.0); Protein,Urine Dip Negative (Negative); RBC 21-50 /HPF (0-5); Specific Gravity 1.025 (1.005-1.030); Urobilinogen 0.2 mg/dL (0.2); WBC 0-2 /HPF (0-5)
[2024-06-06 01:37] LABS: ALBUMIN 4.7 g/dL (3.5-5.0); ANION GAP 17.1 MEQ/L (5-15); BILIRUBIN,TOTAL 0.5 mg/dL (0.2-1.3); Calcium 9.3 mg/dL (8.4-10.2); Creatinine 1 0.95 mg/dL (0.66-1.25); EST GLOMERULAR FILTRATION RATE 116.1 ML/MIN; Potassium 3.9 mmol/L (3.5-5.1); Total Protein 7.7 g/dL (6.3-8.2)
[2024-06-06 03:02] VITALS: BP 129/73; PULSE 75; RESP 22
[2024-06-06 03:09] VITALS: O2SAT 100
== END 2024-06-06 03:35 | disposition home or self-care (01) ==
LOC: ED 00:54
DX: R31.9 Hematuria, unspecified (principal); R10.9 Unspecified abdominal pain; M54.9 Dorsalgia, unspecified; R10.2 Pelvic and perineal pain; Z79.891 Long term (current) use of opiate analgesic
CPT/HCPCS: 36415; 80053; 81001; 85025; 96361; 96374; 96375; 99284; J1885